=== PATIENT | female | born 1975 | race Caucasian/White ===

== ENCOUNTER 2018-07-22 09:59 | Outpatient (REF) | payer MEDICARE, MEDICAID, SELFPAY ==
[2018-07-22 12:52] LABS: HCT 40.6 % (36.0-46.0); HGB 13.5 g/dL (12.0-15.5); Mean Corp. HGB Concentration 33.3 g/dL (32.0-36.0); Mean Corpuscular Hemoglobin 31.6 pg (27.0-33.0); Mean Corpuscular Volume 95.1 fL (80-95); Mean Platelet Volume 11.9 fL (8.0-11.0); Platelet Count 276 x1000/uL (130-400); RBC 4.27 m/cumm (4.00-5.20); RBC Distribution Width 12.3 % (11.7-14.6); White Blood Cell Count 5.63 k/cumm (4.4-10.8)
[2018-07-22 13:02] LABS: ALT 16 U/L (12-78); AST 6 U/L (15-37); Albumin 3.6 g/dL (3.4-5.0); Alkaline Phosphatase 53 U/L (46-116); Anion Gap 8.7 mmol/L (3-11); BUN 8 mg/dL (7-18); Bilirubin, Total 0.3 mg/dL (0.2-1.0); CO2 27.3 mmol/L (21.0-32.0); CREATININE 0.61 mg/dL (0.55-1.02); Calcium 8.8 mg/dL (8.5-10.1); Chloride 104 mmol/L (98-107); Cholesterol 174 mg/dL (50-200); Glucose 73 mg/dL (70-100); HDL Cholesterol 67 mg/dL (40-60); LDL CHOLESTEROL 91 mg/dL (<100); Sodium 140 mmol/L (136-145); TSH 1.08 uIU/mL (0.358-3.74); Total Protein 6.9 g/dL (6.4-8.2); Triglyceride 84 mg/dL (30-150)
== END 2018-07-22 10:19 ==
LOC: NCHCN 09:59
PROVIDERS: PCP Internal Medicine; Visit Provider Internal Medicine
DX: F41.8 Other specified anxiety disorders (principal); F31.10 Bipolar disorder, current episode manic without psychotic features, unspecified; Z13.6 Encounter for screening for cardiovascular disorders; Z79.899 Other long term (current) drug therapy
CPT/HCPCS: 80053; 80061; 83721; 85027; 84443

== ENCOUNTER 2019-03-02 14:06 | Emergency (ER) | payer MEDICARE, MEDICAID, SELFPAY ==
[2019-03-02 14:21] VITALS: BP 132/60; PULSE 87; RESP 16; TEMP 36.7; O2SAT 98
--- NOTE | 2019-03-02 14:22 | DI.RAD_ITS ---
SYMPTOMS/DIAGNOSIS: BLUNT TRAUMA TO 3RD AND 4TH DISTAL DIGITS RIGHT HAND: Four views. There is a nondisplaced oblique fracture involving the distal half of the distal phalanx of the right middle finger. There is associated soft tissue swelling present. The fracture does not appear to extend into the DIP joint. No other fracture or dislocation is seen. No radiopaque foreign bodies are seen in the soft tissues. IMPRESSION: Nondisplaced fracture involving the distal phalanx of the right middle finger.
--- NOTE | 2019-03-02 14:25 | ED.GENADUL_ITS ---
Discharge Plan Disposition Patient Disposition: HOME Condition: Stable Discharge Details Chief Complaint: Orthopedic Clinical Impression: Fracture of distal phalanx of finger of right hand Primary Care Provider: Guru Ling ED Provider: Lalito Salazar Home Meds and New Rx's Prescriptions: Continued albuterol sulfate 8.5 GM HFA aerosol inhaler 2 puff Inhalation QID PRNRF: 0 acetaminophen [Tylenol] 325 MG tablet 650 mg PO TID PRN (Reason: Pain) RF: 0 ibuprofen 200 MG capsule 600 mg PO TID PRN (Reason: Pain) RF: 0 methadone 10 MG/ML concentrate 25 mg PO DAILY RF: 0 Discharge Instructions Instructions: Finger Fracture (ED) Additional Instructions: Return immediately to the emergency department for any new or worsening symptoms or signs of wound infection. Otherwise follow-up with orthopedist for reassessment. Referrals: Rey Lauren MD [ [facility] STAFF PHYSICIAN] - (Call the office for arrangement of reassessment) Discharge Data Discharge Date/Time-TO BE ENTERED AT DEPARTURE: 03/02/19 15:58 Medical Decision Making 20 minutes prior to arrival patient slammed finger in door. Right middle finger injury to the distal phalanx with what appears to be a slight abrasion. Patient does have sensation to the distal aspect of the middle finger. She does state some slight discomfort to the ring finger with unremarkable exam plan to do radiological imaging for rule out of acute fracture. Review of radiological imaging shows a lunacy through the distal phalanx with no displacement. Exam is otherwise unremarkable. Digital block technique was utilized with 1% lidocaine and 4 mils was injected into the base of the finger after verbal consent was obtained. When appropriate anesthetic level was achieved patient was able to fully move finger and no tendon dysfunction was noted. Wound was thoroughly cleansed and irrigated and appears to be a slight abrasion as suggested. No subungual hematoma. Given fracture patient's finger was splinted. Doubt this is an open fracture but plan to give Keflex x2 days just in case. Patient states previous penicillin allergy but has had Keflex in the past with no problem. Patient placed upon Ortho follow-up list. Tetanus is within 10 years. After discussion of diagnosis and plan of care patient has no further needs, questions, or concerns and states clear understanding to return to the emergency department for any worsening symptoms. HPI General Mode of arrival: ambulatory . Date/Time Provider Initiated Documentation: 03/02/19 14:15 . Limitations to Documentation: no limitations . Information obtained by: patient and RN notes reviewed . History of Present Illness 43 year old F presents to the emergency department with the chief complaint of right hand injury, described as severe, with intensity rated at 9. Quality is described as sharp, and is localized to the right and upper extremity. Patient reports no radiation. Patient started experiencing this minute(s) (20) and it has been constant. Patient notes no other symptoms.. Patient did receive the following treatments prior to arrival, none Related Data Home Medications Medication Instructions Recorded Confirmed albuterol sulfate 2 puff INHALATION QID PRN 04/16/15 03/02/19 acetaminophen [Tylenol] 650 mg PO TID PRN 11/07/15 03/02/19 ibuprofen 600 mg PO TID PRN 11/07/15 03/02/19 methadone 25 mg PO DAILY 01/27/17 03/02/19 Allergies Allergy/AdvReac Type Severity Reaction Status Date / Time codeine Allergy Mild Hives Unverified 03/02/19 14:23 Penicillins Allergy Mild Hives Unverified 03/02/19 14:23 Review of Systems Cardiovascular Denies syncope and Denies lightheadedness Musculoskeletal Denies deformity, Reports limited range of motion and Reports numbness Integumentary/Breasts Reports as per HPI Neurologic Denies syncope, Reports numbness and Denies paresthesias [facility] Surgical History Cervical Conization/LEEP Ligation of fallopian tube Social History Smoking/Tobacco Use Status: Current every day Tobacco Type: cigarettes Drug use: Occasionally Do you feel safe in your relationship?: Yes Exam Const General: cooperative and no acute distress Orientation: alert, awake and oriented x3 Resp Effort & Inspection: normal respiratory effort and able to speak in complete sentences Cardio Rate: regular rate Rhythm: regular rhythm Extrem Right upper extremity: hand Details: neurosensory exam normal, tenderness Location: of the 3rd digit Location: involving the entire digit and of the 4th digit Location: at the distal phalanx, vascular exam Details: radial pulse present and normal capillary refill, abnormal ROM of finger Details: pain with passive ROM Location: of the 3rd digit and of the 4th digit, swelling Location: of the 3rd digit Location: at the distal phalanx and at the nailbed and laceration (distal 3rd digit); no crepitus
[2019-03-02] MEDS: Ibuprofen 600 MG TAB PO (14:45)
== END 2019-03-02 15:58 | disposition home or self-care (01) ==
PROVIDERS: Emergency Provider Nurse Practitioner Family; PCP Internal Medicine
DX: S62.662A Nondisplaced fracture of distal phalanx of right middle finger, initial encounter for closed fracture (principal); W23.0XXA Caught, crushed, jammed, or pinched between moving objects, initial encounter
CPT/HCPCS: 26750; 73130

== ENCOUNTER 2020-10-05 14:53 | Outpatient (REF) | payer MEDICARE, MEDICAID, SELFPAY ==
[2020-10-05 20:29] LABS: HCT 40.7 % (36.0-46.0); HGB 13.2 g/dL (11.2-15.7); MCH 31.1 pg (27.0-33.0); MCHC 32.4 % (32.0-36.0); MPV 12.3 fL (8.0-11.0); Platelet Count 279 10^3/uL (130-400); RBC 4.24 10^6/uL (3.93-5.22); RDW-SD 42.1 fL
== END 2020-10-05 15:13 ==
LOC: NCHCN 14:53
PROVIDERS: PCP Internal Medicine; Visit Provider Internal Medicine
DX: R53.83 Other fatigue (principal); F41.8 Other specified anxiety disorders; N92.1 Excessive and frequent menstruation with irregular cycle; Z72.0 Tobacco use
CPT/HCPCS: 85027; 84443

== ENCOUNTER 2022-11-12 13:48 | Outpatient (REF) | payer MEDICARE, MEDICAID, SELFPAY ==
[2022-11-12 14:20] LABS: Abs Immature Grans 0.01 10^3/uL (0.0-0.06); Absolute Basophil Count 0.05 10^3/uL (0.0-0.2); Absolute Eosinophil Count 0.51 10^3/uL (0.0-0.7); Absolute Lymphocyte Count 1.64 10^3/uL (1.2-3.4); Absolute Monocyte Count 0.68 10^3/uL (0.1-0.8); Absolute Neutrophil Count 3.01 10^3/uL (1.2-6.7); Basophils % 0.8; Eosinophils % 8.6; HCT 39.3 % (36.0-46.0); HGB 13.2 g/dL (11.2-15.7); Immature Grans % 0.2; Lymphocytes % 27.8; MCH 31.4 pg (27.0-33.0); MCHC 33.6 % (32.0-36.0); MCV 93 fL (80-95); MPV 11.7 fL (8.0-11.0); Monocytes % 11.5; Neutrophils % 51.1; Platelet Count 338 10^3/uL (130-400); RBC 4.21 10^6/uL (3.93-5.22); RDW 12.1 % (11.7-14.6); RDW-SD 41.2 fL
[2022-11-12 15:14] LABS: ALT 15 U/L (14-59); AST 17 U/L (15-37); Albumin 3.8 g/dL (3.4-5.0); Alkaline Phosphatase 61 U/L (46-116); Anion Gap 8.5 mmol/L (3-11); BUN 13 mg/dL (7-18); Bilirubin, Total 0.3 mg/dL (0.2-1.0); CO2 28.5 mmol/L (21.0-32.0); CREATININE 0.5 mg/dL (0.55-1.02); Chloride 105 mmol/L (98-107); Estimated GFR 115.62 (mL/min/1.73m2); Glucose 79 mg/dL (74-106); Potassium 4.4 mmol/L (3.5-5.1); Sodium 142 mmol/L (136-145); TSH (W/Ref FT4) 1.92 uIU/mL (0.36-3.74)
== END 2022-11-12 13:49 | disposition home or self-care (01) ==
LOC: NCHCN 13:48
PROVIDERS: PCP Internal Medicine; Visit Provider Family Medicine
DX: F41.8 Other specified anxiety disorders (principal); R63.4 Abnormal weight loss; M25.551 Pain in right hip
CPT/HCPCS: 80053; 84443; 85025